=== PATIENT | female | born 1985 ===

== ENCOUNTER 2018-04-13 13:30 | Emergency (ER) | payer SELFPAY ==
[~2018-04-13] VITALS: Ht 162.6 cm; Wt 59.9 kg
[~2018-04-13 13:30] MED LIST: AC500T PO; FERR-57 PO; IBP600T1 PO; PNV1COMB25 PO; PREN1TAB39 PO
--- OUTSIDE RECORDS SUMMARY | 2018-04-13 13:36 | XMS REPORT | Continuity of Care Document ---
Author Author [facility] Organization [facility] Address Unknown Phone Unavailable Allergies Active Description Code Type Severity Reaction Onset Reported/Identified Relationship to Patient Clinical Status Yes acetaminophen [id number] Drug Allergy Unknown N/A 06/24/2009 Medications There is no data. Problems Date Dx Coded Attending Type Code Diagnosis Diagnosed By 04/24/2011 Ot 644.03 THRT COY LABOR-ANTEPART 05/03/2011 Ot 664.91 OB PERINEAL TRAU NOS-DEL 05/03/2011 Ot V06.1 DIPHTHERIA- TETANUS-PERTUSSIS, COMBINED [ 05/03/2011 Ot V27.0 DELIVER- SINGLE LIVEBORN 02/18/2015 [facility] RODRIGUEZ GRAPHITE PAN DRIER TENDER Ot 611.71 02/18/2015 [facility]MU RODRIGUEZ GRAPHITE PAN DRIER TENDER Ot 611.72 02/18/2015 [facility] RODRIGUEZ GRAPHITE PAN DRIER TENDER Ot 610.0 02/24/2015 RADHA JACOBO, SIVAKUMAR Belcher Ot N60.12 03/02/2015 RADHA JACOBO, SIVAKUMAR Belcher Ot N60.12 04/07/2015 RAJAT JACOBO, CHARLES Ross Ot O26.851 04/07/2015 RAJAT JACOBO, CHARLES Ross Ot O99.89 04/07/2015 RAJAT JACOBO, CHARLES Ross Ot R10.2 04/07/2015 CHARLES EARL MD Ot Z3A.01 04/08/2015 CHARLES EARL MD Ot O26.851 04/08/2015 CHARLES EARL MD Ot O99.89 04/08/2015 CHARLES EARL MD Ot R10.2 04/08/2015 RAJAT JACOBO, CHARLES Ross Ot Z3A.01 04/08/2015 AMA YEN DO Ot O03.9 COMPLETE OR UNSP SPONTANEOUS [place] 04/08/2015 AMA YEN DO Ot Z3A.01 LESS THAN 8 WEEKS GESTATION OF 06/01/2015 RAJAT JACOBO, CHARLES Ross Ot O26.851 06/01/2015 CHARLES EARL MD Ot O99.89 06/01/2015 CHARLES EARL MD Ot R10.2 06/01/2015 CHARLES EARL MD Ot Z3A.01 06/23/2015 CHARLES EARL MD Ot O26.851 06/23/2015 CHARLES EARL MD Ot O99.89 06/23/2015 CHARLES EARL MD Ot R10.2 06/23/2015 CHARLES EARL MD Ot Z3A.01 07/05/2015 CHARLES EARL MD Ot O26.851 SPOTTING COMPLICATING , FIRST T 07/05/2015 CHARLES EARL MD Ot O99.89 OTH DISEASES AND CONDITIONS COMPL PREG/C 07/05/2015 CHARLES EARL MD Ot R10.2 PELVIC AND PERINEAL PAIN 07/05/2015 CHARLES EARL MD Ot Z3A.01 LESS THAN 8 WEEKS GESTATION OF 09/22/2015 Ot 649.63 UTERINE SIZE DATE DISCREPANCY, ANTEPARTU 09/22/2015 Ot 649.63 UTERINE SIZE DATE DISCREPANCY, ANTEPARTU 09/22/2015 Ot 786.50 CHEST PAIN NOS 09/22/2015 CHARLES EARL MD Ot O26.851 SPOTTING COMPLICATING , FIRST T 09/22/2015 CHARLES EARL MD Ot O99.89 OTH DISEASES AND CONDITIONS COMPL PREG/C 09/22/2015 CHARLES EARL MD Ot R10.2 PELVIC AND PERINEAL PAIN 09/22/2015 CHARLES EARL MD Ot Z3A.01 LESS THAN 8 WEEKS GESTATION OF 09/22/2015 UMU RODRIGUEZ GRAPHITE PAN DRIER TENDER Ot 611.71 MASTODYNIA 09/22/2015 UMU RODRIGUEZ GRAPHITE PAN DRIER TENDER Ot 611.72 LUMP OR MASS IN BREAST 09/22/2015 UMU RODRIGUEZ GRAPHITE PAN DRIER TENDER Ot 610.0 SOLITARY CYST OF BREAST 09/22/2015 SIVAKUMAR GARCIA MD Ot 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 09/22/2015 [facility]MU RODRIGUEZ GRAPHITE PAN DRIER TENDER Ot 611.71 MASTODYNIA 09/22/2015 UMU RODRIGUEZ GRAPHITE PAN DRIER TENDER Ot 611.72 LUMP OR MASS IN BREAST 09/22/2015 UMU RODIRGUEZ GRAPHITE PAN DRIER TENDER Ot 610.0 SOLITARY CYST OF BREAST 09/22/2015 SIVAKUMAR GARCIA MD Ot 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 09/23/2015 SIVAKUMAR GARCIA MD Ot N63 UNSPECIFIED LUMP IN BREAST 09/28/2015 SIVAKUMAR GARCIA MD Ot N63 UNSPECIFIED LUMP IN BREAST 07/04/2017 Ot 786.50 CHEST PAIN NOS 07/04/2017 CHARLES EARL MD Ot O26.851 SPOTTING COMPLICATING , FIRST T 07/04/2017 CHARLES EARL MD Ot O99.89 OT DISEASES AND CONDITIONS COMPL PREG/C 07/04/2017 CHARLES EARL MD Ot R10.2 PELVIC AND PERINEAL PAIN 07/04/2017 CHARLES EARL MD Ot Z3A.01 LESS THAN 8 WEEKS GESTATION OF 07/04/2017 Ot 786.50 CHEST PAIN NOS 07/04/2017 CHARLES EARL MD Ot O26.851 SPOTTING COMPLICATING , FIRST T 07/04/2017 CHARLES EARL MD Ot O99.89 OT DISEASES AND CONDITIONS COMPL PREG/C 07/04/2017 CHARLES EARL MD Ot R10.2 PELVIC AND PERINEAL PAIN 07/04/2017 CHARLES EARL MD Ot Z3A.01 LESS THAN 8 WEEKS GESTATION OF Procedures Code Description Performed By Performed On 75.69 05/02/2011 Results There is no data. Encounters ACCT No. Visit Date/Time Discharge Status Pt. Type Provider Facility Loc./Unit Complaint [id number] 09/22/2015 10:18:00 09/22/2015 23:59:59 CLS Outpatient SIVAKUMAR GARCIA MD [facility] RAD [id number] 07/06/2015 12:00:00 07/06/2015 23:59:59 CLS Preadmit CHARLES EARL MD [facility] LAB PELVIC PAIN, SPOTTING, [id number] 04/08/2015 12:04:00 07/05/2015 00:01:00 DIS Outpatient CHARLES EARL MD [facility] LAB [id number] 04/08/2015 20:50:00 04/08/2015 22:09:00 DIS Emergency AMA YEN DO [facility] ER [id number] 02/18/2015 09:22:00 02/18/2015 23:59:59 CLS Outpatient SIVAKUMAR GARCIA MD [facility] RAD [id number] 10/21/2013 10:14:00 10/21/2013 23:59:59 CLS Outpatient UMU RODRIGUEZ APRN [facility] RAD [id number] 06/10/2013 12:01:00 06/10/2013 23:59:59 CLS Outpatient UMU RODRIGUEZ APRN [facility] RAD [id number] 08/01/2012 12:03:00 Document Registration [id number] 05/02/2011 16:40:00 Document Registration [id number] 04/23/2011 22:00:00 Document Registration [id number] 02/05/2011 15:07:00 Document Registration [id number] 11/10/2010 11:06:00 Document Registration
--- NOTE | 2018-04-13 14:12 | ED GU-Female ---
General Chief Complaint: -Female Stated Complaint: VAGINAL BLEEDING,3 MONTHS Nursing Triage Note: Pt has cc of vaginal bleeding. Pt is 12 weeks and started bleeding last night at 1900. Pt has on and off abd pain RLQ. Pt was told two weeks ago that us that baby is 50/50 chance of making it from no heart tone or movement. Nursing Sepsis Screen: No Definite Risk Source: patient, family History of Present Illness Date Seen by Provider: Apr 13, 2018 Time Seen by Provider: 13:54 Initial Comments Here with who is helping with translation. Patient is approximately 12 weeks and is having concerns because of spotting noted since last night. Apparently had ultrasound 2 weeks ago that showed 50-50 chance that the had ended as they're unable to detect heartbeat at that time. Denies significant pain but does have some lower abdominal cramping. Denies vaginal discharge. Timing/Duration: yesterday, intermittent Severity/Quality: mild, cramping Location: suprapubic Radiation: none Activities at Onset: none Prior Genitourinary Problems: none Associated Symptoms: abdominal pain; No dysuria, No fever/chills, No nausea/ vomiting, No urinary frequency Allergies and Home Medications Allergies Coded Allergies: Acetaminophen (Verified Allergy, Unknown, 06/24/09) Home Medications Acetaminophen 500 Mg Tablet, 1,000 MG PO Q6H PRN, (Reported) Ferrous Sulfate 325 Mg Tablet, 325 MG PO DAILY, (Reported) Ibuprofen 600 Mg Tab, 600 MG PO Q6H PRN, (Reported) Pnv #116/Iron Fumarate/FA/Dha 1 Each Combo..pkg, 1 EACH PO DAILY, (Reported) Vits W-Ca,Fe,Fa(<1MG) 1 Each Tablet, 1 EACH PO DAILY, (Reported) Patient Home Medication List Home Medication List Reviewed: Yes Review of Systems Review of Systems Constitutional: see HPI; No chills, No fever Respiratory: no symptoms reported Cardiovascular: no symptoms reported Gastrointestinal: see HPI Genitourinary: see HPI; denies dysuria; pain : Yes Musculoskeletal: no symptoms reported Psychiatric/Neurological: No Symptoms Reported All Other Systemes Reviewed Negative Unless Noted: Yes Past Xnprabj-Audghv-Evblth Hx Past Med/Social Hx: Reviewed Nursing Past Med/Soc Hx Patient Social History Alcohol Use: Denies Use Recreational Drug Use: No Smoking Status: Never a Smoker Recent Foreign Travel: No Contact w/Someone Who Travel: No Recent Infectious Disease Expo: No Recent Hopitalizations: No Physical Abuse: No Sexual Abuse: No Mistreated: No Fear: No Immunizations Up To Date Date of Influenza Vaccine: Apr 23, 2011 Seasonal Allergies Seasonal Allergies: No Past Medical History Surgeries: No Respiratory: No Cardiac: No Neurological: No : Yes Last Menstrual Period: Jan 17, 2018 Reproductive Disorders: No Female Reproductive Disorders: Denies Gastrointestinal: No Musculoskeletal: No Endocrine: No Cancer: No Psychosocial: No Integumentary: No Blood Disorders: No Adverse Reaction/Blood Tranf: No Family Medical History Reviewed Nursing Family Hx No Pertinent Family Hx Physical Exam Vital Signs Vital Signs - First Documented 04/13/18 13:57 Temp 98.2 Pulse 76 Resp 16 B/P (MAP) 135/87 (103) Pulse Ox 100 O2 Delivery Room Air Capillary Refill : Less Than 3 Seconds Height, Weight, BMI Height: 5'4.00" Weight: 132lbs. oz. [id number]; BMI Method:Stated General Appearance: WD/WN, no apparent distress Cardiovascular: regular rate, rhythm, no murmur Respiratory: lungs clear, normal breath sounds Gastrointestinal: non tender, soft Back: normal inspection, no CVA tenderness, no vertebral tenderness Extremities: non-tender, normal inspection Neurologic/Psychiatric: alert, normal mood/affect Skin: normal color, warm/dry Progress/Results/Core Measures Suspected Sepsis Recent Fever Within 48 Hours: No Infection Criteria Present: None New/Unexplained Altered Menta: No Sepsis Screen: No Definite Risk SIRS Temperature:98.2 Pulse: 76 Respiratory Rate: 16 Laboratory Tests 04/13/18 14:12: White Blood Count 8.6 Blood Pressure 135 /87 Mean: 103 Laboratory Tests 04/13/18 14:12: Platelet Count 183 Results/Orders Lab Results Laboratory Tests Test 04/13/18 14:12 Range/Units White Blood Count 8.6 4.3-11.0 10^3/uL Red Blood Count 4.09 L 4.35-5.85 10^6/uL Hemoglobin 12.0 11.5-16.0 G/DL Hematocrit 36 35-52 % Mean Corpuscular Volume 87 80-99 FL Mean Corpuscular Hemoglobin 29 25-34 PG Mean Corpuscular Hemoglobin Concent 34 32-36 G/DL Red Cell Distribution Width 13.1 10.0-14.5 % Platelet Count 183 130-400 10^3/uL Mean Platelet Volume 11.6 H 7.4-10.4 FL Neutrophils (%) (Auto) 85 H 42-75 % Lymphocytes (%) (Auto) 10 L 12-44 % Monocytes (%) (Auto) 4 0-12 % Eosinophils (%) (Auto) 0 0-10 % Basophils (%) (Auto) 0 0-10 % Neutrophils # (Auto) 7.3 1.8-7.8 X 10^3 Lymphocytes # (Auto) 0.9 L 1.0-4.0 X 10^3 Monocytes # (Auto) 0.3 0.0-1.0 X 10^3 Eosinophils # (Auto) 0.0 0.0-0.3 10^3/uL Basophils # (Auto) 0.0 0.0-0.1 10^3/uL Human Chorionic Gonadotropin, Quant 62132 H <5 MIU/ML My Orders Orders - MARTHA JACOME MD Cbc With Automated Diff (04/13/18 13:59) Hcg,Quantitative (04/13/18 13:59) Vital Signs/I&O 04/13/18 13:57 Temp 98.2 Pulse 76 Resp 16 B/P (MAP) 135/87 (103) Pulse Ox 100 O2 Delivery Room Air Capillary Refill : Less Than 3 Seconds Blood Pressure Mean: 103 Progress Note : Progress Note Seen and evaluated. Bedside ultrasound performed. Does have intrauterine with fetus measuring 8 weeks and 3 days but no heart tones are movement detected on this ultrasound. Patient is O+ by history. We will check hCG quantitative level. I discussed the case with Dr. Cazares. She is to follow- up with clinic on Saturday for further evaluation. She can call Dr. Rocha's office on Saturday for appointment. I will send a copy the chart to Dr. Rocha. No indication for RhoGAM at this point. Patient is not in significant pain currently. Discharged home with return precautions. Patient verbalize understanding instructions and agreement with plan. Departure Impression Primary Impression: Incomplete miscarriage Disposition: 01 HOME, SELF-CARE Condition: Stable Departure-Patient Inst. Decision time for Depature: 14:11 Referrals: ELLI ROCHA MD (PCP/Family) Primary Care Physician Patient Instructions: Miscarriage (DC) Add. Discharge Instructions: All discharge instructions reviewed with patient and/or family. Voiced understanding. You may take ibuprofen 600 mg every 8 hours as needed for pain. You may take Tylenol/acetaminophen 1000 mg every 6 hours as needed for pain. Drink plenty of fluids. Call Dr. Whittington's office on Saturday for appointment. Return for worse pain, fever, vomiting, bleeding greater than 2 pads per hour for more than 2 hours or other concerns as needed. Copy Copies To 1: ELLI ROCHA MD, TIMOTHY D MD Apr 13, 2018 14:12
[2018-04-13 14:20] LABS: BASOPHILS % (AUTO) 0 % (0-10); EOSINOPHILS % (AUTO) 0 % (0-10); HEMATOCRIT 36 % (35-52); LYMPHOCYTES # (AUTO) 0.9 X 10^3 (1.0-4.0); LYMPHOCYTES % (AUTO) 10 % (12-44); MEAN CORPUSCULAR HEMOGLOBIN 29 PG (25-34); MEAN CORPUSCULAR HGB CONC 34 G/DL (32-36); MEAN CORPUSCULAR VOLUME 87 FL (80-99); MEAN PLATELET VOLUME 11.6 FL (7.4-10.4); MONOCYTES # (AUTO) 0.3 X 10^3 (0.0-1.0); MONOCYTES % (AUTO) 4 % (0-12); NEUTROPHILS # (AUTO) 7.3 X 10^3 (1.8-7.8); NEUTROPHILS % (AUTO) 85 % (42-75); PLATELET COUNT 183 10^3/uL (130-400); RED BLOOD COUNT 4.09 10^6/uL (4.35-5.85); RED CELL DISTRIBUTION WIDTH 13.1 % (10.0-14.5); WHITE BLOOD COUNT 8.6 10^3/uL (4.3-11.0)
[2018-04-13 15:20] VITALS: BP 92/66
== END 2018-04-13 15:20 | disposition home or self-care (01) ==
LOC: EDUNIT# 13:30 → ER 13:32
DX: O03.4 Incomplete spontaneous abortion without complication (principal); Z3A.12 12 weeks gestation of pregnancy; Z88.8 Allergy status to other drugs, medicaments and biological substances
CPT/HCPCS: 36415; 84702; 85025; 99282